=== PATIENT | male | born 1965 | race Two or more races ===

== ENCOUNTER 2020-01-12 12:43 | Emergency (ER) | payer SELFPAY ==
[~2020-01-12] VITALS: Ht 170.2 cm; Wt 63.5 kg
[2020-01-12 12:54] VITALS: BP 129/78
== END 2020-01-12 13:32 | disposition home or self-care (01) ==
LOC: ER 12:43
DX: S61.210D Laceration without foreign body of right index finger without damage to nail, subsequent encounter (principal); X58.XXXD Exposure to other specified factors, subsequent encounter

== ENCOUNTER 2020-01-24 08:16 | Emergency (ER) | payer OTHER ==
[~2020-01-24] VITALS: Ht 170.2 cm; Wt 77.1 kg
[2020-01-24 08:24] VITALS: BP 134/87
== END 2020-01-24 09:12 | disposition home or self-care (01) ==
LOC: ER 08:16
DX: S61.210D Laceration without foreign body of right index finger without damage to nail, subsequent encounter (principal); X58.XXXD Exposure to other specified factors, subsequent encounter